=== PATIENT | male | born 1995 | race Caucasian/White ===

== ENCOUNTER → 2020-04-19 | Emergency (ER) | payer OTHER, BC ==
[~2020-04-19] VITALS: Ht 175.3 cm; Wt 65.8 kg
[~2020-04-19] MED LIST: NORCO 5-325 TA1 EACH PO
== END ==
LOC: ED 22:56
DX: S52.611A Displaced fracture of right ulna styloid process, initial encounter for closed fracture (principal); S01.81XA Laceration without foreign body of other part of head, initial encounter; V49.9XXA Car occupant (driver) (passenger) injured in unspecified traffic accident, initial encounter
CPT/HCPCS: 70450; 71260; 72125; 73080; 73110; 74177; 80053; 82150; 82550; 83605; 83690; 85025; 86850; 86900; 86901; 99284-25; G0480; Q9967